=== PATIENT | male | born 1970 ===

== ENCOUNTER → 2020-06-20 | Day surgery (SDC) | payer OTHER ==
[~2020-06-20] MED LIST: NORCO 5-325 TA1 EACH PO; ONDANSETRON ODT8 MG PO
[2020-06-20 08:56] LABS: HCT 41.1 % (42.0-52.0); HGB 13.7 g/dl (13.2-18.0); MCH 29.9 pg (25.0-31.0); MCHC 33.3 g/dL (32.0-36.0); MCV 89.7 fL (78.0-100.0); MPV 10.3 fL (6.0-9.5); RBC 4.58 M/uL (4.70-6.00); RDW 12.5 % (11.5-14.0); WBC 4.9 K/uL (4.0-10.5)
[2020-06-20 09:13] LABS: ALBUMIN 3.5 g/dL (3.4-5.0); BILIRUBIN - TOTAL 0.4 mg/dL (0.2-1.0); BUN/CREAT RATIO (CALC) 13.7 RATIO; CREATININE 1.02 mg/dL (0.67-1.17); POTASSIUM 3.1 mmol/L (3.5-5.1); TOTAL PROTEIN 6.5 g/dL (6.4-8.2)
--- NOTE | 2020-06-20 12:20 | NUR ---
PATIENT UP TO WALK IN PRIETO WITH RN. TOLERATED WALKING WELL. TO BATHROOM TO ATTEMPT VOIUDING
== END | disposition home or self-care (01) ==
LOC: FAS 07:58
PROVIDERS: Surgery
DX: K40.20 Bilateral inguinal hernia, without obstruction or gangrene, not specified as recurrent (principal); I10 Essential (primary) hypertension; F17.210 Nicotine dependence, cigarettes, uncomplicated; Z91.030 Bee allergy status; Z90.49 Acquired absence of other specified parts of digestive tract; Z20.822 Contact with and (suspected) exposure to COVID-19
CPT/HCPCS: 36415; 80053; C1781; J0690; J1885; J2250; J2405; J2704; J2710; J3010; J7120